=== PATIENT | male | born 1985 | race Hispanic/Latino ===

== ENCOUNTER 2020-12-10 01:54 | Emergency (ER) | payer SELFPAY ==
[2020-12-10] MEDS ORDERED: Lidocaine 1% w/Epinephrine 1:100K 20 ML VIAL ONE (02:01)
[2020-12-10] MEDS ORDERED: Boostrix 0.5 ML (Tdap) VIAL ONE (03:34)
== END 2020-12-10 04:46 | disposition home or self-care (01) ==
LOC: CSHERS 01:54
DX: S01.01XA Laceration without foreign body of scalp, initial encounter (principal); Z23 Encounter for immunization; E03.9 Hypothyroidism, unspecified; Z79.899 Other long term (current) drug therapy; W19.XXXA Unspecified fall, initial encounter
CPT/HCPCS: 12002; 70450; 90471; 90715